=== PATIENT | female | born 1995 | race Caucasian/White ===

== ENCOUNTER → 2018-02-28 | Outpatient (CLI) | payer OTHER | END | disposition home or self-care (01) | LOC: CARD 12:55 | PROVIDERS: ATTEND Nurse Practitioner Family | DX: R56.9 Unspecified convulsions (principal) | CPT/HCPCS: 95819 ==

== ENCOUNTER 2018-09-27 14:09 | Emergency (ER) | payer OTHER ==
[~2018-09-27] VITALS: Ht 162.6 cm; Wt 78.7 kg
--- NOTE | 2018-09-27 15:04 | NUR ---
pt to room from lobby
--- NOTE | 2018-09-27 15:10 | NUR ---
pt reports severe pain starting in the small of her back that continues to the middle of her buttocks. most intense pain is right at the top of her "butt crack." weakess in both of her legs with intermittant numbness and paralysis. also c/o of pain in both knees. symptoms began 09/20/2015. two days before symptom onset pt reports nausea and a fever of 102.9. current temp 99. nausea still present. pt has a hx of epilepsy and has been unmedicated for seizure for 4 months due to side effects. she has not consulted with her primary care dr about lack of medication compliance.
--- NOTE | 2018-09-27 15:26 | NUR ---
Note aaliyah in EDM - 09/27/18 at 1537 by [email or web address] pt bp low. er md notified. pt reports pain is worse.
[2018-09-27] MEDS ORDERED: KETOROLAC 30 MG/1 ML ONE ×2 (16:25→16:29)
[2018-09-27] MEDS ORDERED: KETOROLAC 30 MG/1 ML IM ONE (16:30)
--- NOTE | 2018-09-27 16:38 | NUR ---
pt medicated per emar. pt ambulatory to bathroom with steady gait.
[2018-09-27 16:58] LABS: MICROSCOPIC NOT IND
[2018-09-27 17:12] LABS: CULTURE INDICATED? NO
[2018-09-27 17:30] VITALS: BP 110/70
== END 2018-09-27 17:33 | disposition home or self-care (01) ==
LOC: ED 16:16
DX: M54.5 Low back pain (principal)
CPT/HCPCS: 81003; 96372; 99283; J1885

== ENCOUNTER 2018-11-18 17:48 | Emergency (ER) | payer OTHER ==
[~2018-11-18] VITALS: Ht 162.6 cm; Wt 77.5 kg
--- NOTE | 2018-11-18 17:48 | NUR ---
BIBA from work in [place] c/o "not feeling good, weak, HOWARD, dizzy since ~1445 after walking 4 mi to work"; hx seiz- no meds x2 mos, pancreatitis; PIV, 300ml NS, BG 87; pt changed into gown, responds approp to staff, sunburn to bilat shoulders noted ("from walking to work today") but NAD, comfort measures provided, call light within reach.
[2018-11-18] MEDS ORDERED: LORazepam 2 MG/ML, 1ML IVPush ONE (18:25)
[2018-11-18] MEDS ORDERED: LORazepam 2 MG/ML, 1ML ONE (18:27)
[2018-11-18] MEDS ORDERED: SODIUM CHLORIDE FLUSH 10ML SYR IVF ONE (18:30)
[2018-11-18 18:40] LABS: BASOPHILS # (AUTO) 0.03 x10^3/uL (0-0.1); BASOPHILS % (AUTO) 0 % (0-1); EOSINOPHILS # (AUTO) 0.02 x10^3/uL (0-0.4); EOSINOPHILS % (AUTO) 0 % (1-7); LYMPHOCYTES # (AUTO) 2.06 x10^3/uL (1-3.4); LYMPHOCYTES % (AUTO) 21 % (22-44); MD NO; MEAN CORPUSCULAR HEMOGLOBIN 31.2 pg (27.0-34.8); MEAN CORPUSCULAR HGB CONC 32.7 g/dL (32.4-35.8); MEAN CORPUSCULAR VOLUME 95.6 fL (80-100); MEAN PLATELET VOLUME 8.8 fL (7.4-10.4); MONOCYTES # (AUTO) 0.86 x10^3/uL (0.2-0.8); MONOCYTES % (AUTO) 9 % (2-9); NEUTROPHILS # (AUTO) 6.99 x10^3/uL (1.8-6.8); NEUTROPHILS % (AUTO) 70 % (42-75); PLATELET COUNT 212 x10^3/uL (130-400); RED BLOOD COUNT 4.36 x10^6/uL (3.82-5.3); RED CELL DISTRIBUTION WIDTH 13.8 % (9.6-15.2)
[2018-11-18 18:50] LABS: ALBUMIN 3.7 g/dL (3.4-5.0); ANION GAP 8 mmol/L (5-15); CALCIUM 8.5 mg/dL (8.5-10.1); CHLORIDE 111 mmol/L (98-107); CREATININE 1.02 mg/dL (0.55-1.02)
--- NOTE | 2018-11-18 18:53 | NUR ---
report given to Clau
--- NOTE | 2018-11-18 18:54 | NUR ---
report received from howard self.
[2018-11-18 20:09] VITALS: BP 111/77
--- NOTE | 2018-11-18 20:19 | NUR ---
Patient given discharge instructions and they have confirmed that they understand the instructions. Patient ambulatory with steady gait.
== END 2018-11-18 20:21 | disposition home or self-care (01) ==
LOC: ED 20:15
DX: G40.319 Generalized idiopathic epilepsy and epileptic syndromes, intractable, without status epilepticus (principal)
CPT/HCPCS: 36415; 80048; 82040; 84703; 85025; 93005; 96374; 99284; J2060